=== PATIENT | male | born 1950 | race Caucasian/White ===

== ENCOUNTER 2022-03-08 15:30 | Inpatient (IN) ==
--- NOTE | 2022-03-08 16:16 | XRay Report ---
SINGLE VIEW CHEST CLINICAL HISTORY: Strokelike symptoms. FINDINGS: An AP, portable, upright chest radiograph is obtained. No prior studies are available for c omparison at the time of dictation. The examination is degraded by portable technique and patient rot ation. The patient is status post midline sternotomy. The heart is enlarged noting atherosclerotic ca lcification of the thoracic aorta. The pulmonary vasculature is noncongested. There is bibasilar scar ring/atelectasis. No airspace consolidation or large pleural effusion is identified. No pneumothorax is seen. The skeletal structures are osteopenic. The bony thorax is grossly intact. IMPRESSION: Cardiomegaly with no acute cardiopulmonary abnormality. ACT 112: Negative or not required by law. Electronically signed by: Twin Lozoya M.D. 03/08/2022 4:14 PM
--- NOTE | 2022-03-08 16:34 | CT Scan Report ---
CT head/brain wo con CLINICAL HISTORY: 71 years-old Male with Stroke Alert. Acutely altered mental status with strokelike symptoms TECHNIQUE: Multiple axial CT images of the head were obtained without contrast. A dose lowering tech nique was utilized adhering to the principles of ALARA. CT DOSE: 614.27 mGy.cm COMPARISON: None. FINDINGS: No acute intracranial hemorrhage, midline shift, abnormal extra axial collection, hydrocephalus or in tracranial mass. Involutional changes with white matter hypodensities suggestive of chronic microvasc ular ischemic disease. Cerebral vascular calcifications. Acute subacute appearing 6.2 cm infarct invo lves the left temporal parietal lobes. Cytotoxic edema without significant surrounding mass effect. N o additional acute or subacute infarct identified. The calvarium is intact. Prior bilateral lens repair. The paranasal sinuses, mastoid air cells, and middle ear cavities are clear. IMPRESSION: 1. Acute to subacute appearing infarct of the left MCA territory involves the left temporal and parie eun lobes measuring over 6 cm. 2. No acute intracranial hemorrhage or midline shift. ACT 112: Negative or not required by law. The above report was generated using voice recognition software. It may contain grammatical, syntax o r spelling errors. Electronically signed by: Emanuel Restrepo M.D. 03/08/2022 4:33 PM
--- NOTE | 2022-03-08 16:42 | Emergency Department Note ---
Impression & Plan Ischemic cerebrovascular accident (CVA), PAF (paroxysmal atrial fibrillation) ED Provider Note NAME: PAULA GODINEZ AGE: 71 SEX: M : 1950 ARRIVES VIA: Walk-In INFORMANT: Patient, ED PROVIDER(S): Humza Carrillo DO CHIEF COMPLAINT: Strokelike symptoms HPI: The patient is a 71-year-old male who has a history of paroxysmal atrial fibrillation who presented to the emergency department for an evaluation of strokelike symptoms. The patient states for the last 2 days he has had trouble talking and trouble concentrating. He states over the last 24 hours he also noticed that he has been having trouble using his arms. He feels very clumsy. He states he has been able to walk. He denies having any headache or trauma. He did not see his family doctor for the symptoms. He presented to the emergency department with his sister. He has no history of stroke. He denies having any nausea or vomiting. But he was complaining of nausea to his family member recently. The patient has been compliant with his outpatient medicat ions. ROS: See above HPI for pertinent positives & negatives. A total of 10 systems reviewed and were otherwise negative. PAST MEDICAL HISTORY: See Below PAST SURGICAL HISTORY: See Below FAMILY HISTORY: See Below SOCIAL HISTORY: See Below HOME MEDICATIONS: See Below ALLERGIES: See Below VITALS: See Below PHYSICAL EXAMINATION: GENERAL: Patient is awake alert in no acute distress patient is resting comfortably and showing no signs of anxiety EYES: The conjunctivae are clear. The pupils are round and reactive. EARS, NOSE, MOUTH AND THROAT: The nose is without any evidence of any deformity. NECK: The neck is nontender and supple. RESPIRATORY: Normal respiratory effort is noted there is no evidence of wheezing rhonchi or rales CARDIOVASCULAR: Regular rate and rhythm noted there no murmurs rubs or gallops normal S1 normal S2. GASTROINTESTINAL: The abdomen is soft. Abdomen is nontender. MUSCULOSKELETAL/EXTREMITIES: There is no evidence of gross deformity full range of motion is noted in the hips and shoulders. SKIN: There is no obvious evidence of any rash. There are no petechiae, pallor or cyanosis noted. NEUROLOGIC: Patient is awake and alert. There is no facial droop. The patient has no drift. The patient is able to hold each leg off the bed for greater than 5 seconds. The patient's speech is pressured. He has significant difficulty forming words. The patient follows commands intermittently. When asked to lift his left leg he lifts his right leg. MEDICAL DECISION MAKING: The patient is a 71-year-old male who presented to the emergency department for an evaluation of strokelike symptoms. The patient presented with his sister. The patient started having symptoms over 24 hours ago. He has a history of paroxysmal atrial fibrillation. The patient was seen by his sister today for the first time in a few days. His sister recognized right away that the patient was having difficulty speaking. The patient had a CAT scan which did show signs of a subacute stroke. I discussed the patient's laboratory and radiographic studies with him. Ultimately he was found to have signs of a subacute stroke but no signs of vessel occlusion. He was in sinus rhythm at my evaluation but likely was having paroxysmal atrial fibrillation. Patient may require further inpatient work-up to determine further what the cause of his stroke while. [facility] Triage Nursing notes reviewed. Prior medical records reviewed Vital Signs: reviewed and remarkable for elevated blood pressure. Differential diagnosis: Infection, dehydration, metabolic abnormality, hypo/hyperglycemia, electrolyte disturbance, anemia, hypoxia, cardiac sources, intracerebral event, toxicologic, neurologic, as well as other pathologies. ER treatment provided: See below Diagnostics interpreted by me: ECG: EKG was obtained in the emergency department. My interpretation is normal sinus rhythm at 81 bpm. There is no ectopy. There is no acute ST segment ab normalities noted. No previous tracing was available. Cardiac Monitoring: An order was placed for continuous cardiac monitoring. The monitor shows a rate of 86 bpm with sinus rhythm. Laboratory studies: As stated above and show below. Imaging studies: See below Consultation(s): I discussed this case with Calista who is [facility] Past Med/Surg History Medical History (Updated 03/08/22 @ 23:33 by Humza Carrillo DO) Arterial ischemic stroke, MCA, left, acute Atrial fibrillation CAD (coronary artery disease) Diabetes DM2 (diabetes mellitus, type 2) HLD (hyperlipidemia) Hypertension PAF (paroxysmal atrial fibrillation) Stroke Surgical History (Updated 03/08/22 @ 19:38 by BASHIR Ray) S/P CABG x 4 Family History (Updated 03/08/22 @ 19:38 by BASHIR Ray) Other Coronary heart disease Diabetes Dyslipidemia Social History (Updated 03/08/22 @ 19:38 by BASHIR Ray) Smoking Status: Never smoker Hx Alcohol Use: No Hx Substance Use: No Preferred Language: Haitian Communication Ability: Effective Translation Director Required: No Beliefs That Will Affect Care: None Current Living Situation: Alone Feels Safe at Home: Yes Allergies Allergies Allergy/AdvReac Type Severity Reaction Status Date / Time No Known Allergies Allergy Unverified 06/21/15 15:24 Home Meds Home Medications Medication Instructions Recorded Confirmed Aspirin Enteric Coated (Ecotrin Or 81 mg PO DAILY ##0 05/08/09 03/08/22 Generic *) Atenolol (Tenormin) 50 mg PO BID ##0 05/08/09 03/08/22 Lisinopril (Zestril) 10 mg PO DAILY ##0 05/08/09 03/08/22 Multivitamin 1 tab PO DAILY ##0 05/08/09 03/08/22 ATORVASTATIN (LIPITOR) 40 mg PO DAILY #0 tabs 02/19/13 03/08/22 METFORMIN HCL ER (GLUCOPHAGE ER) 500 mg PO BID #0 tabs 06/21/15 03/08/22 apixaban 5 mg tablet (Eliquis) 5 mg PO BID 03/08/22 03/08/22 furosemide 20 mg tablet 20 mg PO 3XWK 03/08/22 03/08/22 potassium chloride 10 mEq 10 meq PO 3XWK 03/08/22 03/08/22 tablet,extended release(part/cryst) semaglutide 1 mg/dose (4 mg/3 mL) 1 mg subcut 1XD 03/08/22 03/08/22 subcutaneous pen injector (Ozempic) Results & Data (ED) Vital Signs Vital Signs - 24 hr 03/08/22 15:41 03/08/22 15:46 03/08/22 15:46 Temperature 37 C Temperature Source Temporal Artery Scan Pulse Rate 86 Pulse Rate [Left Finger] Pulse Rhythm Regular Pulse Rhythm [Left Finger] Pulse Strength Normal Pulse Strength [Left Finger] Respiratory Rate 18 Respiratory Effort / Characteristics Non-Labored Spontaneous Respiratory Depth Normal Respiratory Pattern Regular Blood Pressure 164/102 H Blood Pressure [Right Arm] Blood Pressure Mean 122 Blood Pressure Mean [Right Arm] Blood Pressure Position Sitting Blood Pressure Position [Right Arm] Pulse Oximetry 99 98 98 Oxygen Delivery Method Room Air Room Air Room Air Sepsis Recent Fever Within 48 Hours No Sepsis New/Unexplained Change in Mental Status No Sepsis Action Taken by Nursing No Action Required 03/08/22 16:52 03/08/22 17:54 03/08/22 19:00 Temperature Temperature Source Pulse Rate Pulse Rate [Left Finger] 100 H Pulse Rhythm Pulse Rhythm [Left Finger] Regular Pulse Strength Pulse Strength [Left Finger] Normal Respiratory Rate 20 19 Respiratory Effort / Characteristics Non-Labored Non-Labored Respiratory Depth Normal Normal Respiratory Pattern Regular Regular Blood Pressure Blood Pressure [Right Arm] 142/93 H 142/74 H 147/102 H Blood Pressure Mean Blood Pressure Mean [Right Arm] 109 96 117 Blood Pressure Position Blood Pressure Position [Right Arm] Lying Pulse Oximetry 98 92 Oxygen Delivery Method Room Air Room Air Sepsis Recent Fever Within 48 Hours Sepsis New/Unexplained Change in Mental Status Sepsis Action Taken by Nursing 03/08/22 19:37 03/08/22 20:12 Temperature Temperature Source Pulse Rate 92 H Pulse Rate [Left Finger] Pulse Rhythm Pulse Rhythm [Left Finger] Pulse Strength Pulse Strength [Left Finger] Respiratory Rate 20 Respiratory Effort / Characteristics Respiratory Depth Respiratory Pattern Blood Pressure 139/94 Blood Pressure [Right Arm] Blood Pressure Mean Blood Pressure Mean [Right Arm] Blood Pressure Position Blood Pressure Position [Right Arm] Pulse Oximetry 95 99 Oxygen Delivery Method Room Air Room Air Sepsis Recent Fever Within 48 Hours Sepsis New/Unexplained Change in Mental Status Sepsis Action Taken by Long-Term Medications Current Medication List: was personally reviewed by me Laboratory Data Attestation: I reviewed the patient's lab results. Result diagrams: 03/08/22 16:24 03/08/22 16:24 Lab Results 03/08/22 03/08/22 03/08/22 Range/Units 16:21 16:24 16:24 WBC 11.05 H (4.8-10.8) K/ul RBC 5.85 (4.63-6.08) M/uL Hgb 17.9 (14.0-18.0) g/dl Hct 55.0 H (40.1-51.0) % MCV 94.0 (80.0-100.0) fL MCH 30.6 (25.0-34.0) pg MCHC 32.5 (32.0-36.0) g/dL RDW Std Deviation 46.1 (36.4-46.3) fL RDW Coeff of Cayla 13.4 (11.5-14.5) % Plt Count 259 (130-400) K/uL MPV 11.2 (9.4-12.4) fL Immature Gran % (Auto) 0.4 % Neut % (Auto) 73.3 % Lymph % (Auto) 18.4 % Phillips % (Auto) 6.5 % Eos % (Auto) 0.6 % Baso % (Auto) 0.8 % Neut # (Auto) 8.10 H (1.4-6.5) K/uL Lymph # (Auto) 2.03 (1.2-3.4) K/uL Phillips # (Auto) 0.72 (0.24-0.82) K/uL Eos # (Auto) 0.07 (0-0.50) K/uL Baso # (Auto) 0.09 (0-0.2) K/uL Immature Gran # (Auto) 0.04 H (0.00-0.02) K/uL PT 10.9 (9.0-12.0) Seconds INR 1.0 (0.9-1.1) APTT 35.5 H (21.0-31.0) Seconds PTT Ratio 1.3 Sodium (136-145) mmol/L Potassium (3.5-5.1) mmol/L Chloride (98-107) mmol/L Carbon Dioxide (21-32) mmol/L Anion Gap (3-11) BUN (6-23) mg/dl Creatinine (0.6-1.4) mg/dl Est Cr Clr Drug Dosing ml/min Est GFR ( Amer) ml/min Est GFR (Non-Af Amer) ml/min BUN/Creatinine Ratio (10-20) Glucose (70-99(Fasting)) mg/dl POC Glucose 155 H (70-99) mg/dl Calcium (8.5-10.1) mg/dl Magnesium (1.7-2.4) mg/dl Total Bilirubin (0.2-1.0) mg/dl AST (13-39) U/L ALT (7-52) U/L Alkaline Phosphatase (34-104) U/L Troponin I High Sens (0-20) pg/ml Total Protein (6.0-8.3) gm/dl Albumin (3.4-5.0) gm/dl Globulin (2.5-4.0) gm/dl Albumin/Globulin Ratio (0.9-2) SARS-CoV-2, RNA, NAAT (NEGATIVE) 03/08/22 03/08/22 Range/Units 16:24 17:00 WBC (4.8-10.8) K/ul RBC (4.63-6.08) M/uL Hgb (14.0-18.0) g/dl Hct (40.1-51.0) % MCV (80.0-100.0) fL MCH (25.0-34.0) pg MCHC (32.0-36.0) g/dL RDW Std Deviation (36.4-46.3) fL RDW Coeff of Cayla (11.5-14.5) % Plt Count (130-400) K/uL MPV (9.4-12.4) fL Immature Gran % (Auto) % Neut % (Auto) % Lymph % (Auto) % Phillips % (Auto) % Eos % (Auto) % Baso % (Auto) % Neut # (Auto) (1.4-6.5) K/uL Lymph # (Auto) (1.2-3.4) K/uL Phillips # (Auto) (0.24-0.82) K/uL Eos # (Auto) (0-0.50) K/uL Baso # (Auto) (0-0.2) K/uL Immature Gran # (Auto) (0.00-0.02) K/uL PT (9.0-12.0) Seconds INR (0.9-1.1) APTT (21.0-31.0) Seconds PTT Ratio Sodium 139 (136-145) mmol/L Potassium 3.8 (3.5-5.1) mmol/L Chloride 102 (98-107) mmol/L Carbon Dioxide 24 (21-32) mmol/L Anion Gap 13 H (3-11) BUN 14 (6-23) mg/dl Creatinine 0.95 (0.6-1.4) mg/dl Est Cr Clr Drug Dosing 74.7 ml/min Est GFR ( Amer) 93.6 ml/min Est GFR (Non-Af Amer) 80.8 ml/min BUN/Creatinine Ratio 14.7 (10-20) Glucose 176 H (70-99(Fasting)) mg/dl POC Glucose (70-99) mg/dl Calcium 10.2 H (8.5-10.1) mg/dl Magnesium 1.9 (1.7-2.4) mg/dl Total Bilirubin 1.6 H (0.2-1.0) mg/dl AST 17 (13-39) U/L ALT 18 (7-52) U/L Alkaline Phosphatase 121 H (34-104) U/L Troponin I High Sens 6.8 (0-20) pg/ml Total Protein 7.4 (6.0-8.3) gm/dl Albumin 4.3 (3.4-5.0) gm/dl Globulin 3.1 (2.5-4.0) gm/dl Albumin/Globulin Ratio 1.4 (0.9-2) SARS-CoV-2, RNA, NAAT NEGATIVE (NEGATIVE) Administered Medications Apixaban (Apixaban 5 Mg Tablet) 5 mg PO BID JES Stop: 04/07/22 20:59 Last Admin: 03/08/22 22:42 Dose: 5 mg Documented By: CABRERA Insulin Aspart (Insulin Aspart Per Unit) 0 units SC ACHS JES Stop: 04/07/22 20:59 Last Admin: 03/08/22 21:19 Dose: Not Given Documented By: CABRERA Discontinued Medications Ioversol (Optiray 320 500ml) 110 ml IV ONCE ONE Stop: 03/08/22 18:15 Last Admin: 03/08/22 18:15 Dose: 110 ml Documented By: DO Imaging Data Radiologist's Impression: Chest X-Ray 03/08/22 15:46 SINGLE VIEW CHEST CLINICAL HISTORY: Strokelike symptoms. FINDINGS: An AP, portable, upright chest radiograph is obtained. No prior studies are available for comparison at the time of dictation. The examination is degraded by portable technique and patient rotation. The patient is status post midline sternotomy. The heart is enlarged noting atherosclerotic calcification of the thoracic aorta. The pulmonary vasculature is noncongested. There is bibasilar scarring/atelectasis. No airspace consolidation or large pleural effusion is identified. No pneumothorax is seen. The skeletal structures are osteopenic. The bony thorax is grossly intact. IMPRESSION: Cardiomegaly with no acute cardiopulmonary abnormality. ACT 112: Negative or not required by law. Electronically signed by: Twin Lozoya M.D. 03/08/2022 4:[address] 03/08/22 15:46 CT head/brain wo con CLINICAL HISTORY: 71 years-old Male with Stroke Alert. Acutely altered mental status with strokelike symptoms TECHNIQUE: Multiple axial CT images of the head were obtained without contrast. A dose lowering technique was utilized adhering to the principles of ALARA. CT DOSE: 614.27 mGy.cm COMPARISON: None. FINDINGS: No acute intracranial hemorrhage, midline shift, abnormal extra axial collection, hydrocephalus or intracranial mass. Involutional changes with white matter hypodensities suggestive of chronic microvascular ischemic disease. Cerebral vascular calcifications. Acute subacute appearing 6.2 cm infarct involves the left temporal parietal lobes. Cytotoxic edema without significant surrounding mass effect. No additional acute or subacute infarct identified. The calvarium is intact. Prior bilateral lens repair. The paranasal sinuses, mastoid air cells, and middle ear cavities are clear. IMPRESSION: 1. Acute to subacute appearing infarct of the left MCA territory involves the left temporal and parietal lobes measuring over 6 cm. 2. No acute intracranial hemorrhage or midline shift. ACT 112: Negative or not required by law. The above report was generated using voice recognition software. It may contain grammatical, syntax or spelling errors. Electronically signed by: Emanuel Restrepo M.D. 03/08/2022 4:33 PM Head CTA 03/08/22 16:31 CT ANGIOGRAM OF THE BRAIN; CT ANGIOGRAM OF THE NECK CLINICAL HISTORY: Strokelike symptoms. COMPARISON STUDY: Unenhanced CT of the brain performed concurrently on 03/08/2022. TECHNIQUE: Following the IV administration of 110 of Optiray 320, CT angiogram of the head and neck was performed from the aortic arch to the vertex. Images are reviewed in the axial, sagittal, and coronal planes. 3-D MIPS images are created and assessed. IV contrast was administered without complication. All measurements were calculated based on NASCET criteria. A dose lowering technique was utilized adhering to the principles of ALARA. CT DOSE: 572.37 mGy.cm FINDINGS: Brain parenchyma: There is age-related involutional change noting mild subcortical and periventricular angiopathic disease. There is no evidence of hemorrhage on these angiographic phase images. No midline shift is seen. Again seen is loss of kumar-white matter differentiation in the posterior left temporoparietal region consistent with a subacute infarct. There is no evidence of enhancing mass lesion on the angiogram phase images. The ventricles, sulci, and cisterns are prominent secondary to postop change. No extra-axial fluid collection is seen. Thoracic aorta: Visualized portions of the thoracic aorta are normal in caliber. The aortic arch demonstrates standard 3-vessel anatomy. Right carotid arterial system: The right common carotid artery is widely patent, as are the right internal and external carotid arteries. Calcified plaque is seen in the carotid bulb. Left carotid arterial system: The left common carotid artery is widely patent, as are the left internal and external carotid arteries. Calcified plaque is noted in the carotid bulb. Vertebral arteries: The vertebral arteries are widely patent noting left-sided dominance. The right vertebral artery is diminutive and terminates as PICA. Subclavian arteries: Widely patent bilaterally. Intracranial vasculature: The internal carotid arteries are patent at the skull base, as are the anterior and middle cerebral arteries bilaterally. The vertebrobasilar system and posterior cerebral arteries are widely patent. There is origin of the right posterior cerebral artery. The left vertebral artery is dominant. There is no aneurysm, high-grade stenosis, or focal vessel cut off seen throughout the intracranial circulation. Jugular veins: Patent bilaterally. Dural sinuses: Patent. Lung apices: Partially visualized upper lobe lung parenchyma appears clear. Soft tissues: The visualized pharyngeal soft tissues are normal in appearance noting angiographic phase technique. The oropharyngeal airway appears widely patent. The salivary and thyroid glands are normal in appearance. No cervical lymphadenopathy is seen. Skeletal structures: The skeletal structures are osteopenic. The calvarium appears intact. The cervical spine is maintained noting multilevel spondylosis. No lytic or blastic lesion is seen. The patient is status post midline sternotomy. Orbits: The bony orbits are intact. Orbital contents are normal as visualized noting bilateral ocular lens implants. Sinuses and mastoids: The paranasal sinuses are clear. The mastoid air cells are well pneumatized. IMPRESSION: 1. Subacute/evolving left posterior temporoparietal lobe infarct. 2. There is no evidence of hemorrhage on these angiographic phase images. No midline shift is seen. 3. Unremarkable CT angiogram of the brain. There is no evidence of central or large vessel occlusion. 4. Unremarkable CT angiogram of the neck. ACT 112: Negative or not required by law. Electronically signed by: Twin Lozoya M.D. 03/08/2022 6:34 PM Neck CTA 03/08/22 16:31 CT ANGIOGRAM OF THE BRAIN; CT ANGIOGRAM OF THE NECK CLINICAL HISTORY: Strokelike symptoms. COMPARISON STUDY: Unenhanced CT of the brain performed concurrently on 03/08/2022. TECHNIQUE: Following the IV administration of 110 of Optiray 320, CT angiogram of the head and neck was performed from the aortic arch to the vertex. Images ar e reviewed in the axial, sagittal, and coronal planes. 3-D MIPS images are created and assessed. IV contrast was administered without complication. All measurements were calculated based on NASCET criteria. A dose lowering technique was utilized adhering to the principles of ALARA. CT DOSE: 572.37 mGy.cm FINDINGS: Brain parenchyma: There is age-related involutional change noting mild subcortical and periventricular angiopathic disease. There is no evidence of hemorrhage on these angiographic phase images. No midline shift is seen. Again seen is loss of kumar-white matter differentiation in the posterior left tempor oparietal region consistent with a subacute infarct. There is no evidence of enhancing mass lesion on the angiogram phase images. The ventricles, sulci, and cisterns are prominent secondary to postop change. No extra-axial fluid collection is seen. Thoracic aorta: Visualized portions of the thoracic aorta are normal in caliber. The aortic arch demonstrates standard 3-vessel anatomy. Right carotid arterial system: The right common carotid artery is widely patent, as are the right internal and external carotid arteries. Calcified plaque is seen in the carotid bulb. Left carotid arterial system: The left common carotid artery is widely patent, as are the left internal and external carotid arteries. Calcified plaque is noted in the carotid bulb. Vertebral arteries: The vertebral arteries are widely patent noting left-sided dominance. The right vertebral artery is diminutive and terminates as PICA. Subclavian arteries: Widely patent bilaterally. Intracranial vasculature: The internal carotid arteries are patent at the skull base, as are the anterior and middle cerebral arteries bilaterally. The vertebrobasilar system and posterior cerebral arteries are widely patent. There is origin of the right posterior cerebral artery. The left vertebral artery is dominant. There is no aneurysm, high-grade stenosis, or focal vessel cut off seen throughout the intracranial circulation. Jugular veins: Patent bilaterally. Dural sinuses: Patent. Lung apices: Partially visualized upper lobe lung parenchyma appears clear. Soft tissues: The visualized pharyngeal soft tissues are normal in appearance noting angiographic phase technique. The oropharyngeal airway appears widely patent. The salivary and thyroid glands are normal in appearance. No cervical lymphadenopathy is seen. Skeletal structures: The skeletal structures are osteopenic. The calvarium appears intact. The cervical spine is maintained noting multilevel spondylosis. No lytic or blastic lesion is seen. The patient is status post midline s ternotomy. Orbits: The bony orbits are intact. Orbital contents are normal as visualized noting bilateral ocular lens implants. Sinuses and mastoids: The paranasal sinuses are clear. The mastoid air cells are well pneumatized. IMPRESSION: 1. Subacute/evolving left posterior temporoparietal lobe infarct. 2. There is no evidence of hemorrhage on these angiographic phase images. No midline shift is seen. 3. Unremarkable CT angiogram of the brain. There is no evidence of central or large vessel occlusion. 4. Unremarkable CT angiogram of the neck. ACT 112: Negative or not required by law. Electronically signed by: Twin Lozoya M.D. 03/08/2022 6:34 PM Brain MRI 03/08/22 17:53 MRI OF THE BRAIN WITHOUT IV CONTRAST CLINICAL HISTORY: Stroke COMPARISON STUDY: CT of the brain dated 03/08/2022. TECHNIQUE: MRI of the brain was performed utilizing various T1 and T2-weighted sequences in the axial, sagittal, and coronal planes. IV contrast was not administered for this examination. FINDINGS: Brain parenchyma: There is an approximately 5 cm focus of restricted diffusion in the left posterior temporoparietal region consistent with a subacute/evolving infarct. No additional foci of acute ischemia are identified. There is no hemorrhage or midline shift. No extra-axial fluid collection is seen. There is a limited involutional change noting mild subcortical and periventricular microangiopathic disease. The cerebellar tonsils are normal in configuration. Ventricles, sulci, and cisterns: Prominent secondary to involutional change. Pituitary and sella: Unremarkable. Intracranial vasculature: Normal flow voids are maintained at the skull base. Orbits: The bony orbits are grossly intact. Orbital contents are normal in appearance noting bilateral ocular lens implants. Sinuses and mastoids: Clear. Calvarium: Unremarkable. Cervical cord: Partially visualized cervical spinal cord is normal in morphology and signal intensity. IMPRESSION: 1. Subacute/evolving left temporoparietal lobe infarct as above. 2. No additional foci of acute ischemia are identified. 3. There is no hemorrhage or midline shift. ACT 112: Negative or not required by law. Electronically signed by: Twin Lozoya M.D. 03/08/2022 6:52 PM Discharge Plan Visit Data Chief Complaint: Neuro Symptoms/Deficit Stated Complaint: SLURRING SPEECH,MIGRAINES, VOMIT, ED Provider: Humza Carrillo Discharge Problem: Ischemic cerebrovascular accident (CVA), PAF (paroxysmal atrial fibrillation) Patient Disposition: Admitted As Inpatient Discharge Instructions Interventions: ED Discharge Assessment Last Done: 03/08/22 20:12
[2022-03-08 17:00] LABS: Basophils # (auto) 0.09 K/uL (0-0.2); Basophils % (auto) 0.8 %; Eosinophils # (auto) 0.07 K/uL (0-0.50); Eosinophils % (auto) 0.6 %; Hemoglobin 17.9 g/dl (14.0-18.0); Immature Granulocytes # (auto) 0.04 K/uL (0.00-0.02); Immature Granulocytes % (auto) 0.4 %; Lymphocytes # (auto) 2.03 K/uL (1.2-3.4); Lymphocytes % (auto) 18.4 %; Mean Corpuscular Hemoglobin 30.6 pg (25.0-34.0); Mean Corpuscular Hgb Conc 32.5 g/dL (32.0-36.0); Mean Platelet Volume 11.2 fL (9.4-12.4); Monocytes # (auto) 0.72 K/uL (0.24-0.82); Monocytes % (auto) 6.5 %; Neutrophils % (auto) 73.3 %; Platelet Count 259 K/uL (130-400); RDW Coefficient of Variation 13.4 % (11.5-14.5); RDW Standard Deviation 46.1 fL (36.4-46.3); Red Blood Count 5.85 M/uL (4.63-6.08); White Blood Count 11.05 K/ul (4.8-10.8)
[2022-03-08 17:03] LABS: Partial Thromboplastin Ratio 1.3; Partial Thromboplastin Time 35.5 Seconds (21.0-31.0); Prothrombin Time 10.9 Seconds (9.0-12.0)
[2022-03-08 17:17] LABS: Troponin I High Sensitivity 6.8 pg/ml (0-20)
[2022-03-08 17:20] LABS: Albumin Globulin Ratio 1.4 (0.9-2); Albumin Level 4.3 gm/dl (3.4-5.0); BUN Creatinine Ratio 14.7 (10-20); Bilirubin,Total 1.6 mg/dl (0.2-1.0); Calcium 10.2 mg/dl (8.5-10.1); Creatinine Clr Calc Pharmacy 74.7 ml/min; Est GFR (African American) 93.6 ml/min; Est GFR (Non-African American) 80.8 ml/min; Globulin 3.1 gm/dl (2.5-4.0); Magnesium 1.9 mg/dl (1.7-2.4); Potassium 3.8 mmol/L (3.5-5.1); Total Protein 7.4 gm/dl (6.0-8.3)
--- NOTE | 2022-03-08 17:38 | History & Physical Report ---
Date of Service March 08, 2022 Assessment & Plan (1) Arterial ischemic stroke, MCA, left, acute: (2) HLD (hyperlipidemia): (3) PAF (paroxysmal atrial fibrillation): (4) DM2 (diabetes mellitus, type 2): (5) Hypertension: Plan 71-year-old male with acute to subacute left MCA stroke. Symptoms started 2 days ago. Head neck CTA and brain MRI done. On statin and takes Eliquis for A. fib. No prior stroke history. Neuro consult placed. Arterial ischemic stroke, MCA, left, acute: Started to have symptoms x2 days ago No CVA History Head CT: Acute to subacute appearing infarct of the left MCA territory involves the left temporal and parietal lobes measuring over 6 cm. 2. No acute intracranial hemorrhage or midline shift. Head/Neck CTA:subacute/evolving ischemic CVA; no ICH or midline shift. Negative. Brain MRI pending Neuro consult placed for acute/subacute stroke; discussed with Dr. Allen via [employer]. NPO for now until dysphagia screen done Slight leukocytosis on labs; WBC 11.05; UA pending. TSH pending Initial Troponin negative - will trend PT/OT/ST consults placed Hypertension: Takes Atenolol and Lisinopril; will hold Lisinopril for permissive HTN per neuro guidance Paroxysmal A. fib: On Eloquis Subtherapeutic INR 1.0 Diabetes mellitus type 2: Takes Metformin, Ozempic, Jardiance, Xultophy Convert to ACHS FSBS and SSI while inpatient Glycemic Pharmacy consult placed Last A1C 01/18/22: 8.0 HLD: Takes Atorvastatin 40 mg daily; continue Lipid panel ordered Disposition: PCP: Dr. Dave Code Status: Full Code VTE Prophylaxis: TEDS and SCDS for now I personally was able to review all current laboratory work and diagnostic images obtained in the ED. Additionally, I was able to review the patients past medication reconciliation and history with direct visualization in the patients chart. I was able to see this patient and collaborate with Dr. Wagner. Please see his addendum for further information as well. History of Present Illness Chief Complaint: stroke like symptoms Primary Care Provider: Panda Dave DO Mr. Mancuso is a 71-year-old male that presented to the [facility] ED today with strokelike symptoms. He stated that 2 days ago he started to notice having difficulty with speaking and concentrating. His sister spoke with him on the phone today and noticed changes in his speech and recommended he go to the ED. Patient has no prior stroke history; however does take Eliquis daily for A. fib. Last echo per EMR was 01/26 EF 55 to 60% with mild /TR and follows with Maulik Bowen; was advised to have repeat echo in 1 year, currently ordered. Head CT revealed acute/subacute left MCA stroke with left temporal/parietal involvement greater than 6 cm. No ICH or midline shift noted. Head neck CTA: negative for additional CVA. Brain MRI ordered and pending. Additional past medical history includes A. fib (On Eloquis), CAD (s/p CABG x4 15 years ago), DM type II, HTN, HLD (Takes Atorvastatin) and FLOR. On examination patient with expressive aphasia and difficulty with fine motor skills on keyboard. Otherwise equal strength bilaterally and other cranial nerves grossly intact. No facial droop or slurring of speech. Patient reports having ophthalmic pressure behind his eyes over the last month intermittently. Patient denies headache, dizziness, chest pain, palpitations, nausea vomiting diarrhea, recent falls or trauma. No family or personal history of stroke. Patient denies tobacco, alcohol, recreational drug use. Patient lives alone at home. He is retired and used to work at the [employer]. Patient will be admitted under [facility] hospitalist service for further evalu ation and management. Please see A/P for further details. Allergies Allergy/AdvReac Type Severity Reaction Status Date / Time No Known Allergies Allergy Unverified 06/21/15 15:24 Home Medications Medication Instructions Recorded Confirmed Type Aspirin Enteric Coated (Ecotrin Or 81 mg PO DAILY ##0 05/08/09 03/08/22 History Generic *) Atenolol (Tenormin) 50 mg PO BID ##0 05/08/09 03/08/22 History Lisinopril (Zestril) 10 mg PO DAILY ##0 05/08/09 03/08/22 History Multivitamin 1 tab PO DAILY ##0 05/08/09 03/08/22 History ATORVASTATIN (LIPITOR) 40 mg PO DAILY #0 tabs 02/19/13 03/08/22 History METFORMIN HCL ER (GLUCOPHAGE ER) 500 mg PO BID #0 tabs 06/21/15 03/08/22 History apixaban 5 mg tablet (Eliquis) 5 mg PO BID 03/08/22 03/08/22 History furosemide 20 mg tablet 20 mg PO 3XWK 03/08/22 03/08/22 History potassium chloride 10 mEq 10 meq PO 3XWK 03/08/22 03/08/22 History tablet,extended release(part/cryst) semaglutide 1 mg/dose (4 mg/3 mL) 1 mg subcut 1XD 03/08/22 03/08/22 History subcutaneous pen injector (Ozempic) Past Med/Surg History Medical History Arterial ischemic stroke, MCA, left, acute Atrial fibrillation CAD (coronary artery disease) Diabetes DM2 (diabetes mellitus, type 2) HLD (hyperlipidemia) Hypertension PAF (paroxysmal atrial fibrillation) Stroke Surgical History (Updated 03/08/22 @ 19:38 by BASHIR Ray) S/P CABG x 4 Family History (Updated 03/08/22 @ 19:38 by BASHIR Ray) Other Coronary heart disease Diabetes Dyslipidemia Social History (Updated 03/08/22 @ 19:38 by BASHIR Ray) Smoking Status: Never smoker Hx Alcohol Use: No Hx Substance Use: No Preferred Language: Iranian Feels Safe at Home: Yes Review of Systems Review of Systems: Neuro: (-) Falls, trauma, slurred speech (+) aphagia (+) opthalmic pressure HEENT: (-) WHITLOCK, dizziness, dysphagia, visual or auditory changes CV: (-) CP, palpitations, swelling Resp: (-) SOB GI: (-) appetite changes, N/V/D, bowel changes : (-) urinary changes Skin: (-) rashes Psych: (-) anxiety, depression Physical Exam Physical Exam: Neuro: AAOx4, PERRLA, no aphagia, memory changes, NIH scale 3 HEENT: head normocephalic, moist mucus membranes CV: S1/S2, (-) M/G/R, (-) edema, cap refill < 3 seconds Resp: Lungs CTA in all walker. On RA GI: Abdomen S/NT/ND, Ax4 bowel sounds, (-) CVA tenderness Musculoskeletal: 5/5 B/L UE strength, 5/5 B/L LE strength. No gait disturbance Skin: (-) rashes , (-) erythema. Psych: euthymic mood Results & Data Results & Data (MN) Vital Signs (Past 12 Hours) Vital Signs Temp Pulse Resp BP BP Pulse Ox O2 Del Method 03/08/22 16:52 20 142/93 H 98 Room Air 03/08/22 15:46 98 Room Air 03/08/22 15:46 98 Room Air 03/08/22 15:41 37 C 86 18 164/102 H 99 Room Air Laboratory Results Short CBC 03/08/22 Range/Units 16:24 WBC 11.05 H (4.8-10.8) K/ul Hgb 17.9 (14.0-18.0) g/dl Hct 55.0 H (40.1-51.0) % Plt Count 259 (130-400) K/uL BMP 03/08/22 16:24 Sodium 139 Potassium 3.8 Chloride 102 Carbon Dioxide 24 BUN 14 Creatinine 0.95 Glucose 176 H Calcium 10.2 H Liver Function 03/08/22 Range/Units 16:24 Total Bilirubin 1.6 H (0.2-1.0) mg/dl AST 17 (13-39) U/L ALT 18 (7-52) U/L Alkaline Phosphatase 121 H (34-104) U/L Albumin 4.3 (3.4-5.0) gm/dl Diagnostic Findings Chest X-Ray 03/08/22 15:46 SINGLE VIEW CHEST CLINICAL HISTORY: Strokelike symptoms. FINDINGS: An AP, portable, upright chest radiograph is obtained. No prior studies are available for comparison at the time of dictation. The examination is degraded by portable technique and patient rotation. The patient is status post midline sternotomy. The heart is enlarged noting atherosclerotic calcification of the thoracic aorta. The pulmonary vasculature is noncongested. There is bibasilar scarring/atelectasis. No airspace consolidation or large pleural effusion is identified. No pneumothorax is seen. The skeletal structures are osteopenic. The bony thorax is grossly intact. IMPRESSION: Cardiomegaly with no acute cardiopulmonary abnormality. ACT 112: Negative or not required by law. Electronically signed by: Twin Lozoya M.D. 03/08/2022 4:[address] 03/08/22 15:46 CT head/brain wo con CLINICAL HISTORY: 71 years-old Male with Stroke Alert. Acutely altered mental status with strokelike symptoms TECHNIQUE: Multiple axial CT images of the head were obtained without contrast. A dose lowering technique was utilized adhering to the principles of ALARA. CT DOSE: 614.27 mGy.cm COMPARISON: None. FINDINGS: No acute intracranial hemorrhage, midline shift, abnormal extra axial collection, hydrocephalus or intracranial mass. Involutional changes with white matter hypodensities suggestive of chronic microvascular ischemic disease. Cerebral vascular calcifications. Acute subacute appearing 6.2 cm infarct involves the left temporal parietal lobes. Cytotoxic edema without significant surrounding mass effect. No additional acute or subacute infarct identified. The calvarium is intact. Prior bilateral lens repair. The paranasal sinuses, mastoid air cells, and middle ear cavities are clear. IMPRESSION: 1. Acute to subacute appearing infarct of the left MCA territory involves the left temporal and parietal lobes measuring over 6 cm. 2. No acute intracranial hemorrhage or midline shift. ACT 112: Negative or not required by law. The above report was generated using voice recognition software. It may contain grammatical, syntax or spelling errors. Electronically signed by: Emanuel Restrepo M.D. 03/08/2022 4:33 PM Code Status & VTE Plan Code Status full code in the event of cardiac and respiratory arrest VTE Prophylaxis Plan VTE Prophylaxis will be ordered: Yes Supervising Physician Co-Signing Physician Notes Care coordinated with BASHIR Torres Agree with above note. Patient seen and examined. Please refer to her notes for full details. Vital signs reviewed. Physical exam: General exam: Alert and oriented. Not in acute distress. CVS: S1 and S2 heard, regular rate and rhythm, no murmurs. RS: Clear to auscultation, no wheezing or crackles. ABD: Soft, bowel sounds present, nontender, no distention. 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 Labs: Reviewed. Assessment and plan: 71M who lives alone with PMH significant for DM, HTN, A fib on eliquis, Flor on cpap, HX of CAD s./p cabg, Hcx of DCHF presents with difficulty speaking and concentrating for last two days. Also having trouble typing on keypad of his computer. When he taked with his sister today she advised to come to hospital. Ambulating fine, NO imbalance as per patient. No diffculty swallowing. Afebrile. NO chest pain or sob. Acute/Subacute CVA Brain MRI:1. Subacute/evolving left temporoparietal lobe infarct CTA head and Neck unremarkable Miss. Mcwilliams contacted neurology and recommended to continue eliquis and permissive HTN Dysphagia screen neuro consult follow echo pt/ot speech evaluation close monitor in tele. HTN Hold lisinopril Cut back atenolol to 25mg bid to allow permissive htn A fib atenolol dose reduced for now as above on eliquis close monitor. Other diagnosis and plan of care as per BASHIR Torres. Karlos valdes MD.
[2022-03-08] MEDS ORDERED: OPTIRAY 320 500ml IV ONE (18:14)
--- NOTE | 2022-03-08 18:35 | CT Scan Report ---
CT ANGIOGRAM OF THE BRAIN; CT ANGIOGRAM OF THE NECK CLINICAL HISTORY: Strokelike symptoms. COMPARISON STUDY: Unenhanced CT of the brain performed concurrently on 03/08/2022. TECHNIQUE: Following the IV administration of 110 of Optiray 320, CT angiogram of the head and neck w as performed from the aortic arch to the vertex. Images are reviewed in the axial, sagittal, and danae nal planes. 3-D MIPS images are created and assessed. IV contrast was administered without complicati on. All measurements were calculated based on NASCET criteria. A dose lowering technique was utilize d adhering to the principles of ALARA. CT DOSE: 572.37 mGy.cm FINDINGS: Brain parenchyma: There is age-related involutional change noting mild subcortical and periventricula r angiopathic disease. There is no evidence of hemorrhage on these angiographic phase images. No midl ine shift is seen. Again seen is loss of kumar-white matter differentiation in the posterior left temp oroparietal region consistent with a subacute infarct. There is no evidence of enhancing mass lesion on the angiogram phase images. The ventricles, sulci, and cisterns are prominent secondary to postop change. No extra-axial fluid collection is seen. Thoracic aorta: Visualized portions of the thoracic aorta are normal in caliber. The aortic arch demo nstrates standard 3-vessel anatomy. Right carotid arterial system: The right common carotid artery is widely patent, as are the right int ernal and external carotid arteries. Calcified plaque is seen in the carotid bulb. Left carotid arterial system: The left common carotid artery is widely patent, as are the left actuarial internship al and external carotid arteries. Calcified plaque is noted in the carotid bulb. Vertebral arteries: The vertebral arteries are widely patent noting left-sided dominance. The right v ertebral artery is diminutive and terminates as PICA. Subclavian arteries: Widely patent bilaterally. Intracranial vasculature: The internal carotid arteries are patent at the skull base, as are the ante rior and middle cerebral arteries bilaterally. The vertebrobasilar system and posterior cerebral carla anu are widely patent. There is origin of the right posterior cerebral artery. The left verteb ral artery is dominant. There is no aneurysm, high-grade stenosis, or focal vessel cut off seen throu ghout the intracranial circulation. Jugular veins: Patent bilaterally. Dural sinuses: Patent. Lung apices: Partially visualized upper lobe lung parenchyma appears clear. Soft tissues: The visualized pharyngeal soft tissues are normal in appearance noting angiographic pha se technique. The oropharyngeal airway appears widely patent. The salivary and thyroid glands are nor mal in appearance. No cervical lymphadenopathy is seen. Skeletal structures: The skeletal structures are osteopenic. The calvarium appears intact. The cervic al spine is maintained noting multilevel spondylosis. No lytic or blastic lesion is seen. The patient is status post midline sternotomy. Orbits: The bony orbits are intact. Orbital contents are normal as visualized noting bilateral ocular lens implants. Sinuses and mastoids: The paranasal sinuses are clear. The mastoid air cells are well pneumatized. IMPRESSION: 1. Subacute/evolving left posterior temporoparietal lobe infarct. 2. There is no evidence of hemorrhage on these angiographic phase images. No midline shift is seen. 3. Unremarkable CT angiogram of the brain. There is no evidence of central or large vessel occlusion. 4. Unremarkable CT angiogram of the neck. ACT 112: Negative or not required by law. Electronically signed by: Twin Lozoya M.D. 03/08/2022 6:34 PM
--- NOTE | 2022-03-08 18:54 | Magnetic Resonance Report ---
MRI OF THE BRAIN WITHOUT IV CONTRAST CLINICAL HISTORY: Stroke COMPARISON STUDY: CT of the brain dated 03/08/2022. TECHNIQUE: MRI of the brain was performed utilizing various T1 and T2-weighted sequences in the axial , sagittal, and coronal planes. IV contrast was not administered for this examination. FINDINGS: Brain parenchyma: There is an approximately 5 cm focus of restricted diffusion in the left posterior temporoparietal region consistent with a subacute/evolving infarct. No additional foci of acute ische teto are identified. There is no hemorrhage or midline shift. No extra-axial fluid collection is seen. There is a limited involutional change noting mild subcortical and periventricular microangiopathic disease. The cerebellar tonsils are normal in configuration. Ventricles, sulci, and cisterns: Prominent secondary to involutional change. Pituitary and sella: Unremarkable. Intracranial vasculature: Normal flow voids are maintained at the skull base. Orbits: The bony orbits are grossly intact. Orbital contents are normal in appearance noting bilatera l ocular lens implants. Sinuses and mastoids: Clear. Calvarium: Unremarkable. Cervical cord: Partially visualized cervical spinal cord is normal in morphology and signal intensity . IMPRESSION: 1. Subacute/evolving left temporoparietal lobe infarct as above. 2. No additional foci of acute ischemia are identified. 3. There is no hemorrhage or midline shift. ACT 112: Negative or not required by law. Electronically signed by: Twin Lozoya M.D. 03/08/2022 6:52 PM
[2022-03-08] MEDS ORDERED: POLYETHYLENE (MIRALAX) 17 GM PACK PO PRN (20:55)
[2022-03-08] MEDS ORDERED: PHARMACIST DISCHARGE MED REC CONSULT PRN (20:55)
[2022-03-08] MEDS ORDERED: ACETAMINOPHEN 325 MG TAB PO PRN (20:55)
[2022-03-08] MEDS ORDERED: PHARMACY GLYCEMIC MGMT CONSULT PRN (20:55)
[2022-03-08] MEDS ORDERED: GLUCOSE 10 TAB/TUBE PO PRN (20:55)
[2022-03-08] MEDS ORDERED: CARBOHYDRATES FOR HYPOGLYCEMIA PO PRN (20:55)
[2022-03-08] MEDS ORDERED: ALUMINUM/MAGNESIUM SUSP 30 ML UDC PO PRN (20:55)
[2022-03-08] MEDS ORDERED: GLUCAGON FOR INJ 1 MG VIAL SQ PRN (20:55)
[2022-03-08] MEDS ORDERED: GLUCOSE 40% GEL 15 GM TUBE PO PRN (20:55)
[2022-03-08] MEDS ORDERED: ONDANSETRON INJ 2 MG/ML 2 ML VIAL IV PRN (20:55)
[2022-03-08] MEDS ORDERED: MAGNESIUM HYDROXIDE SUSP 30 ML UDC PO PRN (20:55)
[2022-03-08] MEDS ORDERED: DEXTROSE 50% 50 ML SYRINGE IV PRN (20:55)
[2022-03-08] MEDS: INSULIN ASPART PER UNIT SC SCH (21:19)
--- NOTE | 2022-03-08 21:51 | Communication Note ---
Date of Service: March 08, 2022 H xof diastolic chf monitor for volume overload. Thanks
[2022-03-08] MEDS: APIXABAN 5 MG TABLET PO SCH (22:42)
[2022-03-09 02:15] LABS: Appearance Urine Clear (Clear); Bilirubin Urine Negative (Negative); Blood Urine Negative (Negative); Color Urine Yellow; Glucose Urine UA 3+ (Negative); Ketones Urine 1+ (Negative); Leukocyte Esterase Urine Negative (Negative); Nitrite Urine Negative (Negative); Protein Urine Negative (Negative); Specific Gravity Urine > 1.045 (1.000-1.030); Urobilinogen Urine Negative (Negative); pH Urine 7.5 (4.5-7.5)
[2022-03-09 02:52] LABS: Basophils # (auto) 0.06 K/uL (0-0.2); Basophils % (auto) 0.5 %; Eosinophils # (auto) 0.05 K/uL (0-0.50); Eosinophils % (auto) 0.4 %; Hematocrit (blood only) 49.6 % (40.1-51.0); Hemoglobin 16.6 g/dl (14.0-18.0); Immature Granulocytes # (auto) 0.04 K/uL (0.00-0.02); Immature Granulocytes % (auto) 0.3 %; Lymphocytes # (auto) 2.47 K/uL (1.2-3.4); Lymphocytes % (auto) 19.9 %; Mean Corpuscular Hemoglobin 30.7 pg (25.0-34.0); Mean Corpuscular Hgb Conc 33.5 g/dL (32.0-36.0); Mean Corpuscular Volume 91.7 fL (80.0-100.0); Mean Platelet Volume 10.8 fL (9.4-12.4); Monocytes # (auto) 1.14 K/uL (0.24-0.82); Monocytes % (auto) 9.2 %; Neutrophils # (auto) 8.68 K/uL (1.4-6.5); Neutrophils % (auto) 69.7 %; Platelet Count 263 K/uL (130-400); RDW Coefficient of Variation 13.5 % (11.5-14.5); RDW Standard Deviation 45.4 fL (36.4-46.3); Red Blood Count 5.41 M/uL (4.63-6.08); White Blood Count 12.44 K/ul (4.8-10.8)
[2022-03-09 03:11] LABS: BUN Creatinine Ratio 17.4 (10-20); Calcium 9.2 mg/dl (8.5-10.1); Chol HDL Ratio 3.6 (0-5); Creatinine Clr Calc Pharmacy 79.6 ml/min; Est GFR (African American) 97.3 ml/min; Potassium 3.9 mmol/L (3.5-5.1)
[2022-03-09 07:20] LABS: Estimated Average Glucose 192 mg/dl; Hemoglobin A1C 8.3 % (4.5-5.6)
--- NOTE | 2022-03-09 08:44 | Pharmacy Report ---
Pharmacy Glycemic Short Note 2 - Date of Service March 09, 2022 - Glycemic Short BSG Results (Last 24 hours): 03/08/22 03/08/22 03/08/22 16:21 16:24 20:32 Glucose 176 H POC Glucose 155 H 130 H 03/09/22 03/09/22 02:22 08:05 Glucose 189 H POC Glucose 137 H OUTPATIENT ANTIDIABETIC REGIMEN: * metformin 500 mg bid, ozempic * A1c 8.3% ASSESSMENT: * 71 year old male with concerns for subacute left MCA stroke. Type 2 diabetic managed on only metformin and ozempic. Pharmacy consulted for glycemic management. Patient did not receive any insulin yesterday * Spoke with RN and no POC test taken before patient started to eat so she checked BSG while he was eating and BSG was 137 mg/dL - advised RN to cover carbs only. Of note, overnight BSG check was 189 * Will continue with stress of 2 for novolog for now. PLAN FOR INPATIENT GLYCEMIC CONTROL: * Hold outpatient oral diabetes medications * Basal insulin * Lantus - not currently warranted * Bolus insulin * NovoLog per scale ACHS or Q6hrs while NPO * Goal Range: Low 110 mg/dL - High 140 mg/dL * Correction Factor: 30 mg/dL/unit * Nutritional / Prandial insulin per carb ratio of 1 unit per 10 grams CHO consumed
[2022-03-09] MEDS ORDERED: POTASSIUM CHLORIDE 10 MEQ TABCR PO SCH (09:00)
[2022-03-09] MEDS ORDERED: FUROSEMIDE 20 MG TAB PO SCH (09:00)
[2022-03-09] MEDS ORDERED: LANTUS PER UNIT CHARGE SQ SCH (09:00)
[2022-03-09] MEDS ORDERED: ATENOLOL 25 MG TABLET PO SCH (09:00)
[2022-03-09] MEDS ORDERED: ATORVASTATIN 40 MG PO SCH (09:00)
[2022-03-09] MEDS: INSULIN ASPART PER UNIT SC SCH ×4 (09:06→22:56)
--- NOTE | 2022-03-09 09:06 | Neurology Consultation ---
Date of Consultation March 09, 2022 Assessment & Plan (1) Stroke: Subacute left temporoparietal infarct presenting with a mixed aphasia. Patient also has a right visual hemifield defect with confrontation testing and a subtle right lower facial droop on neurological examination. He does not have a hemiparesis. He did well with simple calculations, finger naming, and distinguishing left and right. Although I suspect patient stroke is cardioembolic in light of his history of atrial fibrillation and reported compliance with Eliquis, I am unable to completely exclude an ischemic thrombotic stroke due to his other cardiovascular disease risk factors including hypertension and diabetes mellitus. His diabetes does appear to be suboptimally controlled with a recent hemoglobin A1c of 8.3. I would recommend that he continue with Eliquis and daily low-dose aspirin. (I would not typically recommend clopidogrel and an anticoagulant such as Eliquis typically other given the theoretical heightened risk for bleeding complications.) Would check an up-to-date transthoracic echocardiogram with bubble study. Patient will need additional medical follow-up regarding management of his diabetes mellitus. Consider additional follow-up with cardiology. PT/OT/speech therapy History of Present Illness Reason for Consultation: stroke Requesting Physician: BASHIR Torres Attending Physician: Benjamin Greene MD History of Present Illness The patient is a 71-year-old male who presented to the emergency department yesterday for further evaluation of strokelike symptoms characterized by difficulty with speech and cognition beginning 2 days prior. His symptoms have been persistent. He is not aware of any other associated neurologic symptoms. No associated hemiparesis. Denies headache. Past medical history notable for atrial fibrillation, type 2 diabetes mellitus, and hyperlipidemia. He has been compliant with his outpatient medications including Eliquis. A CT of the head revealed an acute to subacute infarct within the left MCA territory involving the left temporoparietal region. No hemorrhage. CT angiography of the head and neck unremarkable. Brain MRI revealed a subacute evolving left temporoparietal lobe infarct. No hemorrhage. I independently reviewed these images and agree with these findings as described by the interpreting radiologist. Allergies Allergy/AdvReac Type Severity Reaction Status Date / Time No Known Allergies Allergy Unverified 06/21/15 15:24 Home Medications Medication Instructions Recorded Confirmed Type Aspirin Enteric Coated (Ecotrin Or 81 mg PO DAILY ##0 05/08/09 03/08/22 History Generic *) Atenolol (Tenormin) 50 mg PO BID ##0 05/08/09 03/08/22 History Lisinopril (Zestril) 10 mg PO DAILY ##0 05/08/09 03/08/22 History Multivitamin 1 tab PO DAILY ##0 05/08/09 03/08/22 History ATORVASTATIN (LIPITOR) 40 mg PO DAILY #0 tabs 02/19/13 03/08/22 History METFORMIN HCL ER (GLUCOPHAGE ER) 500 mg PO BID #0 tabs 06/21/15 03/08/22 History apixaban 5 mg tablet (Eliquis) 5 mg PO BID 03/08/22 03/08/22 History furosemide 20 mg tablet 20 mg PO 3XWK 03/08/22 03/08/22 History potassium chloride 10 mEq 10 meq PO 3XWK 03/08/22 03/08/22 History tablet,extended release(part/cryst) semaglutide 1 mg/dose (4 mg/3 mL) 1 mg subcut 1XD 03/08/22 03/08/22 History subcutaneous pen injector (Ozempic) Patient History Medical History (Updated 03/08/22 @ 23:33 by Humza Carrillo DO) Arterial ischemic stroke, MCA, left, acute Atrial fibrillation CAD (coronary artery disease) Diabetes DM2 (diabetes mellitus, type 2) HLD (hyperlipidemia) Hypertension PAF (paroxysmal atrial fibrillation) Stroke Surgical History (Updated 03/08/22 @ 19:38 by BASHIR Ray) S/P CABG x 4 Family History (Updated 03/08/22 @ 19:38 by BASHIR Ray) Other Coronary heart disease Diabetes Dyslipidemia Social History (Updated 03/08/22 @ 19:38 by BASHIR Ray) Smoking Status: Never smoker Hx Alcohol Use: No Hx Substance Use: No Preferred Language: Portuguese Communication Ability: Effective Client Services Analyst Required: No Beliefs That Will Affect Care: None Current Living Situation: Alone Feels Safe at Home: Yes Review of Systems Constitutional: no fever and no chills Eyes: no blind spots and no diplopia Ear, Nose, Mouth, Throat: no hearing loss Respiratory: no cough and no dyspnea Cardiovascular: no chest pain and no palpitations Gastrointestinal: no nausea and no vomiting Genitourinary: no dysuria Musculoskeletal: no myalgia Integumentary: no rash and no lesions Neurologic: as per Subjective / HPI Psychiatric: no depression and no anxiety Hematologic / Lymphatic: no easy bleeding and no easy bruising Exam (Neuro) Constitutional: well developed and well nourished; no acute distress Eyes: PERRL, normal accommodation and EOM intact bilaterally; + abnormal visual field confrontation, no fundoscopic abnormality, no nystagmus and no papilledema Cardiovascular: Vessels: normal carotid upstroke; no carotid bruit Neurologic: Oriented to:: Person; negative Place or Time Memory: Short Term Intact; negative Remote Intact Attention: Span Intact and Concentration Intact Language: negative Naming Objects or Repeating Phrases Speech Fluency: Dysfluency; negative Dysarthria Speech Aphasia: Aphasia (Expressive and receptive elements) Fund of Knowledge: Vocabulary; negative Current Events or Past History Cranial Nerves: Normal III, IV, (Pupils equal round reactive to light and accommodation, eye movements normal), V (Facial sensation intact), VIII (Hearing intact), IX, X (Palate elevates to midline), XI (Shoulder shrug intact) and XII (Tongue protrudes to midline); Abnorm II (There is a right visual field deficit with confrontation testing.) or VII (There is mild flattening of the right nasolabial fold) Motor Strength: Normal Lower Extremities and Normal Upper Extremities; negative Pronator Drift Motor Tone: Normal Lower Extremities and Normal Upper Extremities Muscle Bulk/Involuntary Movements: No Involuntary Movements; negative Muscle Atrophy Sensation: Light Touch Intact, Pain/Temperature Intact, Vibration Intact and Proprioception Intact Coordination: Normal; negative Limited Balance, Dysdiadochokinesia, Finger-Nose Abnormal or Heel-Garvin Abnormal Deep Tendon Reflexes: Rt Triceps: 2+, Lt Triceps: 2+, Rt Biceps: 2+, Lt Biceps: 2+, Rt Brachioradialis: 2+, Lt Brachioradialis: 2+, Rt Patellar: 2+, Lt Patellar: 2+, Rt Ankle: 1+ and Lt Ankl e: 1+ Special Tests: negative Babinski Present Details: Gait not tested in the context of patient's current neurological/medical status. Results & Data ([facility]) Vital Signs (Past 12 Hours) Vital Signs Temp Pulse Pulse Resp BP Pulse Ox O2 Del Method 03/09/22 07:42 36.7 C 88 19 145/80 H 95 Room Air 03/09/22 07:14 88 03/09/22 02:56 36.7 C 86 18 126/72 94 Room Air 03/08/22 23:34 36.7 C 102 H 18 132/78 96 Room Air 03/08/22 21:38 36.3 C L 86 16 148/87 H 99 Room Air Laboratory Results WBC 12.44, hemoglobin 16.6, hematocrit 49.6, platelet count 263, sodium 141, potassium 3.9, BUN 16, creatinine 0.92, glucose 189, hemoglobin A1c 8.3, triglycerides 239, cholesterol 130, LDL 46, VLDL 48, HDL [address] angiography of the head and neck and brain MRI are as described in the history of present illness. I independently reviewed these images and appreciated the findings as described by the interpreting radiologist. Electrocardiogram reveals a normal sinus rhythm, 89 bpm. Coding Level of Care Code 68636 Initial Inpt Care Lvl 3 Diagnoses Stroke I63.9
[2022-03-09] MEDS: MULTIVITAMIN TAB PO SCH (09:11)
[2022-03-09] MEDS: ASPIRIN 81 MG ECTAB PO SCH (09:11)
[2022-03-09] MEDS: ATENOLOL 25 MG TABLET PO SCH ×2 (09:11→20:28)
[2022-03-09] MEDS: ATORVASTATIN 40 MG TAB PO SCH (09:11)
[2022-03-09] MEDS: APIXABAN 5 MG TABLET PO SCH ×2 (09:12→20:28)
--- NOTE | 2022-03-09 11:24 | Electrocardiogram Report ---
Test Reason : Blood Pressure : / mmHG Vent. Rate : 081 BPM Atrial Rate : 081 BPM P-R Int : 180 ms QRS Dur : 094 ms QT Int : 376 ms P-R-T Axes : 031 008 048 degrees QTc Int : 436 ms Normal sinus rhythm Normal ECG No previous ECGs available Confirmed by Garrett Gill ([id number]) on 03/09/2022 11:23:44 AM Referred By: Confirmed By:Mundo Gill
--- NOTE | 2022-03-09 18:13 | Hospitalist Progress Note ---
Date of Service March 09, 2022 Assessment & Plan (1) Arterial ischemic stroke, MCA, left, acute: (2) HLD (hyperlipidemia): (3) PAF (paroxysmal atrial fibrillation): (4) DM2 (diabetes mellitus, type 2): (5) Hypertension: Plan Patient is a 71 yr male with H/O DM II, HTN, A fib on eliquis, Mane on cpap, HX of CAD s./p cabg, Hcx of DCHF presents with difficulty speaking and concentrating for last two days. Also having trouble typing on keypad of his computer. Acute/Subacute CVA --Brain MRI:Subacute/evolving left temporoparietal lobe infarct as above. No additional foci of acute ischemia are identified. There is no hemorrhage or midline shift. --Head /Neck CTA:Subacute/evolving left posterior temporoparietal lobe infarct. There is no evidence of hemorrhage on these angiographic phase images. No midline shift is seen. Unremarkable CT angiogram of the brain. There is no evidence of central or large vessel occlusion. . Unremarkable CT angiogram of the neck. --ECHO: EF 60 to 65%. Mild concentric LVH. Arctic valve is trileaflet. Aortic valve is mildly calcified. Mild to moderate valvular aortic stenosis. Injection of contrast documented no interatrial shunt -- LDL 46 -- HbA1c 8.3 -- Continue aspirin, Eliquis Also started on Lipitor Appreciate neurology input Continue PT OT Speech eval HTN Hold lisinopril for today Atenolol decreased to 25mg bid to allow permissive HTN Monitor BP Will resume home medications tomorrow A fib on Eliquis Continue monitor normal Will need cafeteria monitor arranged as outpatient DM II HbA1C 8.3 Takes Metformin, Ozempic, Jardiance, Xultophy Continue Insulin while hospitalized HLD: on Lipitor DVT Px: on Eliquis Code Status Full Code Admission and Anticipated Discharge Date Admission Date: March 08, 2022 Subjective Patient is seen and examined at bedside Reports minimal word finding difficulty and difficulty with reading States right upper extremity weakness is better No other complaints Denies chest pain, dyspnea, dizziness, nausea, abdominal pain Review of Systems Review of Systems: All systems reviewed & are unremarkable except as noted in Subjective Physical Exam Physical Exam: Physical Exam: Vitals signs as noted above General Appearance:Moderately built and nourished, no apparent distress Head: normocephalic, Atraumatic Eyes: normal inspection, EOMI Neck: supple, Trachea midline Respiratory/Chest: Normal breath sounds, CTA, No accessory muscle use Cardiovascular: S1, S2, + murmur Abdomen/GI:Soft, Non tender, Bowel sounds present Extremities/Musculoskeletal:normal inspection, no edema Neurologic/Psych:AAOX3, Minimal RUE weakness, intermittent word finding difficulty Skin: normal color, warm Results & Data Results & Data ([facility]) Vital Signs (Past 12 Hours) Vital Signs Temp Pulse Pulse Resp BP Pulse Ox O2 Del Method 03/09/22 16:00 36.7 C 88 17 117/79 93 Room Air 03/09/22 15:00 95 H 03/09/22 12:30 36.7 C 90 19 153/99 H 96 Room Air 03/09/22 07:42 36.7 C 88 19 145/80 H 95 Room Air 03/09/22 07:14 88 Laboratory Results Short CBC 03/09/22 Range/Units 02:22 WBC 12.44 H (4.8-10.8) K/ul Hgb 16.6 (14.0-18.0) g/dl Hct 49.6 (40.1-51.0) % Plt Count 263 (130-400) K/uL BMP 03/09/22 02:22 Sodium 141 Potassium 3.9 Chloride 107 Carbon Dioxide 24 BUN 16 Creatinine 0.92 Glucose 189 H Calcium 9.2 Urine 03/09/22 Range/Units 01:35 Urine Color Yellow Urine Appearance Clear (Clear) Urine pH 7.5 (4.5-7.5) Ur Specific [place] > 1.045 H (1.000-1.030) Urine Protein Negative (Negative) Urine Glucose (UA) 3+ H (Negative)
--- NOTE | 2022-03-09 20:06 | Electrocardiogram Report ---
Test Reason : Blood Pressure : / mmHG Vent. Rate : 089 BPM Atrial Rate : 089 BPM P-R Int : 200 ms QRS Dur : 094 ms QT Int : 354 ms P-R-T Axes : 019 -10 028 degrees QTc Int : 430 ms Normal sinus rhythm possible Inferior infarct , age undetermined Abnormal ECG When compared with ECG of 08-MAR-2022 16:00, (unconfirmed) Inferior infarct is now Present Confirmed by Garrett Gill ([id number]) on 03/09/2022 8:06:16 PM Referred By: REFERRED SELF Confirmed By:Mundo Gill
[2022-03-10 04:53] VITALS: O2SAT 94
[2022-03-10 06:27] LABS: Basophils # (auto) 0.04 K/uL (0-0.2); Basophils % (auto) 0.3 %; Eosinophils # (auto) 0.13 K/uL (0-0.50); Eosinophils % (auto) 1.1 %; Hematocrit (blood only) 53.3 % (40.1-51.0); Hemoglobin 17.4 g/dl (14.0-18.0); Immature Granulocytes # (auto) 0.04 K/uL (0.00-0.02); Immature Granulocytes % (auto) 0.3 %; Lymphocytes # (auto) 2.14 K/uL (1.2-3.4); Lymphocytes % (auto) 18.6 %; Mean Corpuscular Hemoglobin 30.4 pg (25.0-34.0); Mean Corpuscular Hgb Conc 32.6 g/dL (32.0-36.0); Mean Corpuscular Volume 93.2 fL (80.0-100.0); Mean Platelet Volume 10.6 fL (9.4-12.4); Monocytes # (auto) 0.97 K/uL (0.24-0.82); Monocytes % (auto) 8.4 %; Neutrophils # (auto) 8.16 K/uL (1.4-6.5); Neutrophils % (auto) 71.3 %; Platelet Count 227 K/uL (130-400); RDW Coefficient of Variation 13.4 % (11.5-14.5); RDW Standard Deviation 45.8 fL (36.4-46.3); Red Blood Count 5.72 M/uL (4.63-6.08); White Blood Count 11.48 K/ul (4.8-10.8)
[2022-03-10 07:01] LABS: BUN Creatinine Ratio 21.8 (10-20); Calcium 9.3 mg/dl (8.5-10.1); Creatinine Clr Calc Pharmacy 84.1 ml/min; Est GFR (African American) 101.3 ml/min; Est GFR (Non-African American) 87.4 ml/min; Potassium 3.8 mmol/L (3.5-5.1)
[2022-03-10] MEDS: MULTIVITAMIN TAB PO SCH (08:27)
[2022-03-10] MEDS: ASPIRIN 81 MG ECTAB PO SCH (08:27)
[2022-03-10] MEDS: APIXABAN 5 MG TABLET PO SCH (08:27)
[2022-03-10] MEDS: ATORVASTATIN 40 MG TAB PO SCH (08:27)
[2022-03-10] MEDS: ATENOLOL 25 MG TABLET PO SCH (08:27)
[2022-03-10] MEDS: INSULIN ASPART PER UNIT SC SCH ×2 (08:33→12:34)
[2022-03-10] MEDS ORDERED: LANTUS PER UNIT CHARGE SQ SCH (09:00)
[2022-03-10 11:16] VITALS: BP 115/76; PULSE 85; TEMP 97.5
--- NOTE | 2022-03-10 12:09 | Hospitalist Progress Note ---
Date of Service March 10, 2022 Assessment & Plan (1) Arterial ischemic stroke, MCA, left, acute: (2) HLD (hyperlipidemia): (3) PAF (paroxysmal atrial fibrillation): (4) DM2 (diabetes mellitus, type 2): (5) Hypertension: Plan Patient is a 71 yr male with H/O DM II, HTN, A fib on eliquis, Mane on cpap, HX of CAD s./p cabg, Hcx of DCHF presents with difficulty speaking and concentrating for last two days. Also having trouble typing on keypad of his computer. Acute/Subacute CVA --Brain MRI:Subacute/evolving left temporoparietal lobe infarct as above. No additional foci of acute ischemia are identified. There is no hemorrhage or midline shift. --Head /Neck CTA:Subacute/evolving left posterior temporoparietal lobe infarct. There is no evidence of hemorrhage on these angiographic phase images. No midline shift is seen. Unremarkable CT angiogram of the brain. There is no evidence of central or large vessel occlusion. . Unremarkable CT angiogram of the neck. --ECHO: EF 60 to 65%. Mild concentric LVH. Arctic valve is trileaflet. Aortic valve is mildly calcified. Mild to moderate valvular aortic stenosis. Injection of contrast documented no interatrial shunt -- LDL 46 -- HbA1c 8.3 -- Continue aspirin, Eliquis, Lipitor Appreciate neurology input Continue PT OT Speech eval Needs follow-up with neurology and cardiology upon discharge HTN Continue Atenolol Monitor BP Resume lisinopril upon discharge A fib on Eliquis Continue monitor normal Will need manager dental arranged as outpatient DM II HbA1C 8.3 Hold PO meds Continue Insulin while hospitalized Advised to follow up with PCP for further adjustment of medications HLD: on Lipitor DVT Px: on Eliquis Code Status Full Code Admission and Anticipated Discharge Date Admission Date: March 08, 2022 Subjective Patient is seen and examined at bedside No new complaints Still seemed to have some word finding difficulty Right upper extremity weakness resolved Discussed with patient's sister over the phone Denies chest pain, dyspnea, dizziness, nausea, abdominal pain Plan to discharge home today Review of Systems Review of Systems: All systems reviewed & are unremarkable except as noted in Subjective Physical Exam Physical Exam: Physical Exam: Vitals signs as noted above General Appearance:Moderately built and nourished, no apparent distress Head: normocephalic, Atraumatic Eyes: normal inspection, EOMI Neck: supple, Trachea midline Respiratory/Chest: Normal breath sounds, CTA, No accessory muscle use Cardiovascular: S1, S2, + murmur Abdomen/GI:Soft, Non tender, Bowel sounds present Extremities/Musculoskeletal:normal inspection, no edema Neurologic/Psych:AAOX3, intermittent word finding difficulty otherwise no focal weakness Skin: normal color, warm Results & Data Results & Data ([facility]) Vital Signs (Past 12 Hours) Vital Signs Temp Pulse Pulse Resp BP BP Pulse Ox 03/10/22 11:16 36.4 C L 85 18 115/76 94 03/10/22 07:28 36.8 C 91 H 18 112/71 94 03/10/22 07:00 89 03/10/22 04:52 36.6 C 84 16 125/76 94 O2 Del Method 03/10/22 11:16 Room Air 03/10/22 07:28 Room Air 03/10/22 07:00 03/10/22 04:52 Room Air Laboratory Results Short CBC 03/10/22 Range/Units 05:49 WBC 11.48 H (4.8-10.8) K/ul Hgb 17.4 (14.0-18.0) g/dl Hct 53.3 H (40.1-51.0) % Plt Count 227 (130-400) K/uL BMP 03/10/22 05:56 Sodium 140 Potassium 3.8 Chloride 105 Carbon Dioxide 24 BUN 19 Creatinine 0.87 Glucose 135 H Calcium 9.3
[2022-03-10] MEDS ORDERED: STROKE PATIENT DISCHARGE STA (12:29)
--- NOTE | 2022-03-10 12:30 | Discharge Summary ---
Date of Service March 10, 2022 Admission HPI Per Admitting Provider Mr. Mancuso is a 71-year-old male that presented to the [facility] ED today with strokelike symptoms. He stated that 2 days ago he started to notice having difficulty with speaking and concentrating. His sister spoke with him on the phone today and noticed changes in his speech and recommended he go to the ED. Patient has no prior stroke history; however does take Eliquis daily for A. fib. Last echo per EMR was 01/26 EF 55 to 60% with mild /TR and follows with Maulik Bowen; was advised to have repeat echo in 1 year, currently ordered. Head CT revealed acute/subacute left MCA stroke with left temporal/parietal involvement greater than 6 cm. No ICH or midline shift noted. Head neck CTA: negative for additional CVA. Brain MRI ordered and pending. Additional past medical history includes A. fib (On Eloquis), CAD (s/p CABG x4 15 years ago), DM type II, HTN, HLD (Takes Atorvastatin) and FLOR. On examination patient with expressive aphasia and difficulty with fine motor skills on keyboard. Otherwise equal strength bilaterally and other cranial nerves grossly intact. No facial droop or slurring of speech. Patient reports having ophthalmic pressure behind his eyes over the last month intermittently. Patient denies headache, dizziness, chest pain, palpitations, nausea vomiting diarrhea, recent falls or trauma. No family or personal history of stroke. Patient denies tobacco, alcohol, recreational drug use. Patient lives alone at home. He is retired and used to work at the [employer]. [facility]. Please see A/P for further details. Admission Exam Per Admitting Provider Physical Exam Physical Exam: Neuro: AAOx4, PERRLA, no aphagia, memory changes, NIH scale 3 HEENT: head normocephalic, moist mucus membranes CV: S1/S2, (-) M/G/R, (-) edema, cap refill < 3 seconds Resp: Lungs CTA in all walker. On RA GI: Abdomen S/NT/ND, Ax4 bowel sounds, (-) CVA tenderness Musculoskeletal: 5/5 B/L UE strength, 5/5 B/L LE strength. No gait disturbance Skin: (-) rashes , (-) erythema. Psych: euthymic mood Principal Diagnosis Acute/Subacute Cerebro Vascular Accident Discharge Data Allergies Allergy/AdvReac Type Severity Reaction Status Date / Time No Known Allergies Allergy Unverified 06/21/15 15:24 Consultations 03/08/22 17:36 ED Decision to Admit Stat 03/08/22 17:53 Consult Neurology Routine Procedures Performed Laboratory Results WBC 11.48 K/ul (4.8-10.8) H 03/10/22 05:49 RBC 5.72 M/uL (4.63-6.08) 03/10/22 05:49 Hgb 17.4 g/dl (14.0-18.0) 03/10/22 05:49 Hct 53.3 % (40.1-51.0) H 03/10/22 05:49 MCV 93.2 fL (80.0-100.0) 03/10/22 05:49 MCH 30.4 pg (25.0-34.0) 03/10/22 05:49 MCHC 32.6 g/dL (32.0-36.0) 03/10/22 05:49 RDW Std Deviation 45.8 fL (36.4-46.3) 03/10/22 05:49 RDW Coeff of Cayla 13.4 % (11.5-14.5) 03/10/22 05:49 Plt Count 227 K/uL (130-400) 03/10/22 05:49 MPV 10.6 fL (9.4-12.4) 03/10/22 05:49 Immature Gran % (Auto) 0.3 % 03/10/22 05:49 Neut % (Auto) 71.3 % 03/10/22 05:49 Lymph % (Auto) 18.6 % 03/10/22 05:49 Barren % (Auto) 8.4 % 03/10/22 05:49 Eos % (Auto) 1.1 % 03/10/22 05:49 Baso % (Auto) 0.3 % 03/10/22 05:49 Neut # (Auto) 8.16 K/uL (1.4-6.5) H 03/10/22 05:49 Lymph # (Auto) 2.14 K/uL (1.2-3.4) 03/10/22 05:49 Barren # (Auto) 0.97 K/uL (0.24-0.82) H 03/10/22 05:49 Eos # (Auto) 0.13 K/uL (0-0.50) 03/10/22 05:49 Baso # (Auto) 0.04 K/uL (0-0.2) 03/10/22 05:49 Immature Gran # (Auto) 0.04 K/uL (0.00-0.02) H 03/10/22 05:49 PT 10.9 Seconds (9.0-12.0) 03/08/22 16:24 INR 1.0 (0.9-1.1) 03/08/22 16:24 APTT 35.5 Seconds (21.0-31.0) H 03/08/22 16:24 PTT Ratio 1.3 03/08/22 16:24 Sodium 140 mmol/L (136-145) 03/10/22 05:56 Potassium 3.8 mmol/L (3.5-5.1) 03/10/22 05:56 Chloride 105 mmol/L (98-107) 03/10/22 05:56 Carbon Dioxide 24 mmol/L (21-32) 03/10/22 05:56 Anion Gap 11 (3-11) 03/10/22 05:56 BUN 19 mg/dl (6-23) 03/10/22 05:56 Creatinine 0.87 mg/dl (0.6-1.4) 03/10/22 05:56 Est Cr Clr Drug Dosing 84.1 ml/min 03/10/22 05:56 Est GFR ( Amer) 101.3 ml/min 03/10/22 05:56 Est GFR (Non-Af Amer) 87.4 ml/min 03/10/22 05:56 BUN/Creatinine Ratio 21.8 (10-20) H 03/10/22 05:56 Glucose 135 mg/dl (70-99(Fasting)) H 03/10/22 05:56 POC Glucose 121 mg/dl (70-99) H 03/10/22 11:15 Estimat Average Glucose 192 mg/dl 03/09/22 02:22 Hemoglobin A1c 8.3 % (4.5-5.6) H 03/09/22 02:22 Calcium 9.3 mg/dl (8.5-10.1) 03/10/22 05:56 Magnesium 1.9 mg/dl (1.7-2.4) 03/08/22 16:24 Total Bilirubin 1.6 mg/dl (0.2-1.0) H 03/08/22 16:24 AST 17 U/L (13-39) 03/08/22 16:24 ALT 18 U/L (7-52) 03/08/22 16:24 Alkaline Phosphatase 121 U/L (34-104) H 03/08/22 16:24 Troponin I High Sens 6.7 pg/ml (0-20) 03/09/22 14:21 Total Protein 7.4 gm/dl (6.0-8.3) 03/08/22 16:24 Albumin 4.3 gm/dl (3.4-5.0) 03/08/22 16:24 Globulin 3.1 gm/dl (2.5-4.0) 03/08/22 16:24 Albumin/Globulin Ratio 1.4 (0.9-2) 03/08/22 16:24 Triglycerides 239 mg/dl (0-150) H 03/09/22 02:22 Cholesterol 130 mg/dl (0-200) 03/09/22 02:22 LDL Cholesterol, Calc 46 mg/dl 03/09/22 02:22 VLDL Cholesterol, Calc 48 mg/dl (0-30) H 03/09/22 02:22 HDL Cholesterol 36 mg/dl 03/09/22 02:22 Cholesterol/HDL Ratio 3.6 (0-5) 03/09/22 02:22 Urine Color Yellow 03/09/22 01:35 Urine Appearance Clear (Clear) 03/09/22 01:35 Urine pH 7.5 (4.5-7.5) 03/09/22 01:35 Ur Specific [place] > 1.045 (1.000-1.030) H 03/09/22 01:35 Urine Protein Negative (Negative) 03/09/22 01:35 Urine Glucose (UA) 3+ (Negative) H 03/09/22 01:35 Urine Ketones 1+ (Negative) H 03/09/22 01:35 Urine Blood Negative (Negative) 03/09/22 01:35 Urine Nitrite Negative (Negative) 03/09/22 01:35 Urine Bilirubin Negative (Negative) 03/09/22 01:35 Urine Urobilinogen Negative (Negative) 03/09/22 01:35 Ur Leukocyte Esterase Negative (Negative) 03/09/22 01:35 Hepatitis C Ab (EIA) NON-REACTIVE (NON-REACTIVE) 03/09/22 02:22 Hep C Ab Signal/Cutoff <0.02 (<1.00) 03/09/22 02:22 SARS-CoV-2, RNA, NAAT NEGATIVE (NEGATIVE) 03/08/22 17:00 Impressions Chest X-Ray 03/08/22 15:46 SINGLE VIEW CHEST CLINICAL HISTORY: Strokelike symptoms. FINDINGS: An AP, portable, upright chest radiograph is obtained. No prior studies are available for comparison at the time of dictation. The examination is degraded by portable technique and patient rotation. The patient is status post midline sternotomy. The heart is enlarged noting atherosclerotic calcification of the thoracic aorta. The pulmonary vasculature is noncongested. There is bibasilar scarring/atelectasis. No airspace consolidation or large pleural effusion is identified. No pneumothorax is seen. The skeletal structures are osteopenic. The bony thorax is grossly intact. IMPRESSION: Cardiomegaly with no acute cardiopulmonary abnormality. ACT 112: Negative or not required by law. Electronically signed by: Twin Lozoya M.D. 03/08/2022 4:[address] 03/08/22 15:46 CT head/brain wo con CLINICAL HISTORY: 71 years-old Male with Stroke Alert. Acutely altered mental status with strokelike symptoms TECHNIQUE: Multiple axial CT images of the head were obtained without contrast. A dose lowering technique was utilized adhering to the principles of ALARA. CT DOSE: 614.27 mGy.cm COMPARISON: None. FINDINGS: No acute intracranial hemorrhage, midline shift, abnormal extra axial collection, hydrocephalus or intracranial mass. Involutional changes with white matter hypodensities suggestive of chronic microvascular ischemic disease. Cerebral vascular calcifications. Acute subacute appearing 6.2 cm infarct involves the left temporal parietal lobes. Cytotoxic edema without significant surrounding mass effect. No additional acute or subacute infarct identified. The calvarium is intact. Prior bilateral lens repair. The paranasal sinuses, mastoid air cells, and middle ear cavities are clear. IMPRESSION: 1. Acute to subacute appearing infarct of the left MCA territory involves the left temporal and parietal lobes measuring over 6 cm. 2. No acute intracranial hemorrhage or midline shift. ACT 112: Negative or not required by law. The above report was generated using voice recognition software. It may contain grammatical, syntax or spelling errors. Electronically signed by: Emanuel Restrepo M.D. 03/08/2022 4:33 PM Head CTA 03/08/22 16:31 CT ANGIOGRAM OF THE BRAIN; CT ANGIOGRAM OF THE NECK CLINICAL HISTORY: Strokelike symptoms. COMPARISON STUDY: Unenhanced CT of the brain performed concurrently on 03/08/2022. TECHNIQUE: Following the IV administration of 110 of Optiray 320, CT angiogram of the head and neck was performed from the aortic arch to the vertex. Images are reviewed in the axial, sagittal, and coronal planes. 3-D MIPS images are created and assessed. IV contrast was administered without complication. All measurements were calculated based on NASCET criteria. A dose lowering technique was utilized adhering to the principles of ALARA. CT DOSE: 572.37 mGy.cm FINDINGS: Brain parenchyma: There is age-related involutional change noting mild subcortical and periventricular angiopathic disease. There is no evidence of hemorrhage on these angiographic phase images. No midline shift is seen. Again seen is loss of kumar-white matter differentiation in the posterior left temporoparietal region consistent with a subacute infarct. There is no evidence of enhancing mass lesion on the angiogram phase images. The ventricles, sulci, and cisterns are prominent secondary to postop change. No extra-axial fluid collection is seen. Thoracic aorta: Visualized portions of the thoracic aorta are normal in caliber. The aortic arch demonstrates standard 3-vessel anatomy. Right carotid arterial system: The right common carotid artery is widely patent, as are the right internal and external carotid arteries. Calcified plaque is seen in the carotid bulb. Left carotid arterial system: The left common carotid artery is widely patent, as are the left internal and external carotid arteries. Calcified plaque is noted in the carotid bulb. Vertebral arteries: The vertebral arteries are widely patent noting left-sided dominance. The right vertebral artery is diminutive and terminates as PICA. Subclavian arteries: Widely patent bilaterally. Intracranial vasculature: The internal carotid arteries are patent at the skull base, as are the anterior and middle cerebral arteries bilaterally. The vertebrobasilar system and posterior cerebral arteries are widely patent. There is origin of the right posterior cerebral artery. The left vertebral artery is dominant. There is no aneurysm, high-grade stenosis, or focal vessel cut off seen throughout the intracranial circulation. Jugular veins: Patent bilaterally. Dural sinuses: Patent. Lung apices: Partially visualized upper lobe lung parenchyma appears clear. Soft tissues: The visualized pharyngeal soft tissues are normal in appearance no ting angiographic phase technique. The oropharyngeal airway appears widely patent. The salivary and thyroid glands are normal in appearance. No cervical lymphadenopathy is seen. Skeletal structures: The skeletal structures are osteopenic. The calvarium appears intact. The cervical spine is maintained noting multilevel spondylosis. No lytic or blastic lesion is seen. The patient is status post midline sternotomy. Orbits: The bony orbits are intact. Orbital contents are normal as visualized noting bilateral ocular lens implants. Sinuses and mastoids: The paranasal sinuses are clear. The mastoid air cells are well pneumatized. IMPRESSION: 1. Subacute/evolving left posterior temporoparietal lobe infarct. 2. There is no evidence of hemorrhage on these angiographic phase images. No midline shift is seen. 3. Unremarkable CT angiogram of the brain. There is no evidence of central or large vessel occlusion. 4. Unremarkable CT angiogram of the neck. ACT 112: Negative or not required by law. Electronically signed by: Twin Lozoya M.D. 03/08/2022 6:34 PM Neck CTA 03/08/22 16:31 CT ANGIOGRAM OF THE BRAIN; CT ANGIOGRAM OF THE NECK CLINICAL HISTORY: Strokelike symptoms. COMPARISON STUDY: Unenhanced CT of the brain performed concurrently on 03/08/2022. TECHNIQUE: Following the IV administration of 110 of Optiray 320, CT angiogram of the head and neck was performed from the aortic arch to the vertex. Images are reviewed in the axial, sagittal, and coronal planes. 3-D MIPS images are created and assessed. IV contrast was administered without complication. All measurements were calculated based on NASCET criteria. A dose lowering technique was utilized adhering to the principles of ALARA. CT DOSE: 572.37 mGy.cm FINDINGS: Brain parenchyma: There is age-related involutional change noting mild subcortical and periventricular angiopathic disease. There is no evidence of hemorrhage on these angiographic phase images. No midline shift is seen. Again seen is loss of kumar-white matter differentiation in the posterior left temporoparietal region consistent with a subacute infarct. There is no evidence of enhancing mass lesion on the angiogram phase images. The ventricles, sulci, and cisterns are prominent secondary to postop change. No extra-axial fluid collection is seen. Thoracic aorta: Visualized portions of the thoracic aorta are normal in caliber. The aortic arch demonstrates standard 3-vessel anatomy. Right carotid arterial system: The right common carotid artery is widely patent, as are the right internal and external carotid arteries. Calcified plaque is seen in the carotid bulb. Left carotid arterial system: The left common carotid artery is widely patent, as are the left internal and external carotid arteries. Calcified plaque is noted in the carotid bulb. Vertebral arteries: The vertebral arteries are widely patent noting left-sided dominance. The right vertebral artery is diminutive and terminates as PICA. Subclavian arteries: Widely patent bilaterally. Intracranial vasculature: The internal carotid arteries are patent at the skull base, as are the anterior and middle cerebral arteries bilaterally. The vertebrobasilar system and posterior cerebral arteries are widely patent. There is origin of the right posterior cerebral artery. The left vertebral artery is dominant. There is no aneurysm, high-grade stenosis, or focal vessel cut off seen throughout the intracranial circulation. Jugular veins: Patent bilaterally. Dural sinuses: Patent. Lung apices: Partially visualized upper lobe lung parenchyma appears clear. Soft tissues: The visualized pharyngeal soft tissues are normal in appearance noting angiographic phase technique. The oropharyngeal airway appears widely patent. The salivary and thyroid glands are normal in appearance. No cervical lymphadenopathy is seen. Skeletal structures: The skeletal structures are osteopenic. The calvarium appea rs intact. The cervical spine is maintained noting multilevel spondylosis. No lytic or blastic lesion is seen. The patient is status post midline sternotomy. Orbits: The bony orbits are intact. Orbital contents are normal as visualized noting bilateral ocular lens implants. Sinuses and mastoids: The paranasal sinuses are clear. The mastoid air cells are well pneumatized. IMPRESSION: 1. Subacute/evolving left posterior temporoparietal lobe infarct. 2. There is no evidence of hemorrhage on these angiographic phase images. No midline shift is seen. 3. Unremarkable CT angiogram of the brain. There is no evidence of central or large vessel occlusion. 4. Unremarkable CT angiogram of the neck. ACT 112: Negative or not required by law. Electronically signed by: Twin Lozoya M.D. 03/08/2022 6:34 PM Brain MRI 03/08/22 17:53 MRI OF THE BRAIN WITHOUT IV CONTRAST CLINICAL HISTORY: Stroke COMPARISON STUDY: CT of the brain dated 03/08/2022. TECHNIQUE: MRI of the brain was performed utilizing various T1 and T2-weighted sequences in the axial, sagittal, and coronal planes. IV contrast was not administered for this examination. FINDINGS: Brain parenchyma: There is an approximately 5 cm focus of restricted diffusion in the left posterior temporoparietal region consistent with a subacute/evolving infarct. No additional foci of acute ischemia are identified. There is no hemorrhage or midline shift. No extra-axial fluid collection is seen. There is a limited involutional change noting mild subcortical and periventricular microan giopathic disease. The cerebellar tonsils are normal in configuration. Ventricles, sulci, and cisterns: Prominent secondary to involutional change. Pituitary and sella: Unremarkable. Intracranial vasculature: Normal flow voids are maintained at the skull base. Orbits: The bony orbits are grossly intact. Orbital contents are normal in appearance noting bilateral ocular lens implants. Sinuses and mastoids: Clear. Calvarium: Unremarkable. Cervical cord: Partially visualized cervical spinal cord is normal in morphology and signal intensity. IMPRESSION: 1. Subacute/evolving left temporoparietal lobe infarct as above. 2. No additional foci of acute ischemia are identified. 3. There is no hemorrhage or midline shift. ACT 112: Negative or not required by law. Electronically signed by: Twin Lozoya M.D. 03/08/2022 6:52 PM Ordered Studies 03/08/22 15:46 CT head/brain wo con Stat 03/08/22 16:31 CT angio head w con Stat CT angio neck with con Stat 03/08/22 17:53 MR brain wo con Routine Hospital Course (1) Arterial ischemic stroke, MCA, left, acute: (2) HLD (hyperlipidemia): (3) PAF (paroxysmal atrial fibrillation): (4) DM2 (diabetes mellitus, type 2): (5) Hypertension: Plan Patient is a 71 yr male with H/O DM II, HTN, A fib on eliquis, Flor on cpap, HX of CAD s./p cabg, Hcx of DCHF presents with difficulty speaking and concentrating for last two days. Also having trouble typing on keypad of his computer. Acute/Subacute CVA --Brain MRI:Subacute/evolving left temporoparietal lobe infarct as above. No additional foci of acute ischemia are identified. There is no hemorrhage or midline shift. --Head /Neck CTA:Subacute/evolving left posterior temporoparietal lobe infarct. There is no evidence of hemorrhage on these angiographic phase images. No midline shift is seen. Unremarkable CT angiogram of the brain. There is no evidence of central or large vessel occlusion. . Unremarkable CT angiogram of the neck. --ECHO: EF 60 to 65%. Mild concentric LVH. Arctic valve is trileaflet. Aortic valve is mildly calcified. Mild to moderate valvular aortic stenosis. Injection of contrast documented no interatrial shunt -- LDL 46 -- HbA1c 8.3 -- Continue aspirin, Eliquis, Lipitor Appreciate neurology input Continue PT OT Speech eval Needs follow-up with neurology and cardiology upon discharge HTN Continue Atenolol Monitor BP Resume lisinopril upon discharge A fib on Eliquis Continue monitor normal Will need residential monitor arranged as outpatient DM II HbA1C 8.3 Hold PO meds Continue Insulin while hospitalized Advised to follow up with PCP for further adjustment of medications HLD: on Lipitor DVT Px: on Eliquis Code Status Full Code Total Time Total Time Spent Total Time Spent (In Minutes): 49 minutes Discharge Plan Discharge Items Patient Disposition: Home - Home Health Services Reason For Visit: ACUTE CVA Discharge Diagnosis: Acute/Subacute Cerebro Vascular Accident Activity: Per Instructions section Exercise/Sports: Gradually increase as tolerated Non-emergency contact: Primary Care Provider, Air Conditioning Unit Tester and Neurologist Call non-emergency contact if: you have any medication questions, your symptoms worsen, your pain is concerning for you and you have a fever Follow-up/Referrals: Panda Dave, [Primary Care Provider] - Diet: Carb Consistent or DM2 and Heart Healthy Addtl Attending Provider Instructions: Follow-up with your primary care physician in 1 week Follow-up with your neurologist Dr.Brian Briscoe in 3-4 weeks Follow-up with your political reporter for further recommendations on management of atrial fibrillation as advised. --- Discuss with your primary care physician regarding further adjustment of medications for management of diabetes mellitus Seek immediate medical attention if your symptoms reoccur or worsen Please take all medications as instructed on discharge list below. Please call if you have any questions or problems. You can reach a brettapproved hospitalist on duty at [facility] 24 hours a day by calling [phone] Risk Factors for Stroke: You can reduce your chances of stroke by working with your medical provider to adopt a healthy lifestyle. Some specific ways to lower your chance of stroke are: * If you are a smoker, now is the time to stop smoking cigarettes * If you are diabetic, improve the control of your blood sugars * Avoid excessive amounts of alcohol * Control high blood pressure * Lose weight if you are overweight * Be sure to lead an active lifestyle * Eat a healthy diet low in salt, cholesterol and fat You should know about other risk factors for stroke that you are unable to control. These include: * Age 55 years or older * Male gender * Certain racial groups: , or / * Family History of Stroke, Mini stroke or Heart Attack * Sickle Cell Disease Follow Up: It is important for you to keep your follow up appointments with your medical provider. Who to Call and When: Medical Emergencies: Call 911 immediately if you experience any of the following warning signs and symptoms of Stroke: * Sudden numbness or weakness of the face, arm or leg, especially on one side of the body * Sudden confusion, trouble speaking or understanding * Sudden trouble seeing in one or both eyes * Sudden trouble walking, dizziness, loss of balance or coordination * Sudden severe headache with no cause Do not delay calling 911 if you experience any warning signs or symptoms of a stroke. Delay in seeking medical attention may affect what treatments can be given to you. . Pending Studies at Discharge: No Stand-Alone Forms: My [facility], Smoking Cessation Medications and DC Order Prescriptions: Continued Aspirin Enteric Coated (Ecotrin Or Generic *) 81 MG ENTERIC COATED TAB 81 mg PO DAILY Qty: 0 Atenolol (Tenormin) 25 MG tablet 50 mg PO BID Qty: 0 Lisinopril (Zestril) 10 MG tablet 10 mg PO DAILY Qty: 0 Multivitamin tablet 1 tab PO DAILY Qty: 0 ATORVASTATIN (LIPITOR) 40 MG tablet 40 mg PO DAILY Qty: 0 METFORMIN HCL ER (GLUCOPHAGE ER) 500 MG tablet 500 mg PO BID Qty: 0 Ozempic 1 mg/dose (4 mg/3 mL) pen injector 1 mg SUBCUT 1XD Rx Instructions: weekly on Mondays potassium chloride 10 mEq tablet,ER particles/crystals 10 meq PO [id number] Rx Instructions: take when Lasix taken Eliquis 5 mg tablet 5 mg PO BID furosemide 20 mg tablet 20 mg PO [id number] Discharge Orders: Discharge Order (Routine); Ordered 03/10/22 Ordered By: Benjamin Padgett/Other Patient Handouts: Managing Type 2 Diabetes Admission Data Admit Date/Time: 03/08/22 20:29 Attending Provider: Benjamin Greene Admit Provider: Karlos Wagner Primary Care Provider: Panda Dave Other Providers: Dwight Allen ; Karlos Wagner ; [facility]
--- NOTE | 2022-03-10 14:45 | Electrocardiogram Report ---
Test Reason : Blood Pressure : / mmHG Vent. Rate : 083 BPM Atrial Rate : 083 BPM P-R Int : 190 ms QRS Dur : 088 ms QT Int : 380 ms P-R-T Axes : 016 -05 048 degrees QTc Int : 446 ms Normal sinus rhythm Inferior infarct (cited on or before 09-MAR-2022) Abnormal ECG When compared with ECG of 09-MAR-2022 05:57, No significant change was found Confirmed by Humza Hendrickson ([id number]) on 03/10/2022 2:45:29 PM Referred By: REFERRED SELF Confirmed By:Humza Hendrickson
[2022-03-10] MEDS ORDERED: ATENOLOL 50 MG TABLET PO SCH (21:00)
== END 2022-03-10 14:34 | disposition home health service (06) | DRG 65 ==
LOC: ED 15:30 → 2S 20:12 → SUATTDRO 20:29 → 2S 20:29